=== PATIENT | male | born 1940 | race Caucasian/White ===

== ENCOUNTER 2016-08-24 18:08 | Emergency (ER) | payer MEDICARE, OTHER ==
[~2016-08-24] VITALS: Ht 180.3 cm; Wt 97.5 kg
[~2016-08-24 18:08] MED LIST: ALPR0.25 PO; DEPA250T2 PO; LORTA5 PO; MONT10 PO; OMEP20CA5 PO; TIZA2CAP PO
[2016-08-24 18:09] VITALS: BP 128/72; PULSE 82; RESP 24; TEMP 98.1; O2SAT 98
--- NOTE | 2016-08-24 18:29 | PD ---
Physical Exam Date Seen by Provider: Aug 24, 2016 Time Seen by Provider: 18:27 Narrative 76 YOWM HERE FOR RECURRENT SEIZURES X3 TODAY. NO RECENT CHANGE OF MEDS VSS. AWAITING BED PLACEMENT Data Data Last Documented VS Vital Signs Date Time Temp Pulse Resp B/P Pulse Ox O2 Delivery O2 Flow Rate FiO2 08/24/16 18:09 98.1 82 24 128/72 98 Room Air [facility] Medical Record Reviewed: Yes Supervised Visit with JERRI: Yes Jake Sandhu Aug 24, 2016 18:29
== END 2016-08-24 20:50 | disposition left against medical advice (07) ==
LOC: NED 18:08
DX: R56.9 Unspecified convulsions (principal); Z53.21 Procedure and treatment not carried out due to patient leaving prior to being seen by health care provider
CPT/HCPCS: 99283

== ENCOUNTER 2017-11-23 09:55 | Inpatient (IN) ==
[2017-11-23] MEDS ORDERED: ceFAZolin 2 GM Premix Inj 2 GM/50 ML PIGGYBACK IV.SIG PRN (10:39)
[2017-11-23 11:50] LABS: Baso % (Auto) 0.7 % (0.0-2.0); Eos % (Auto) 0.8 % (0.0-4.0); Hematocrit 46.1 % (39.0-51.0); Hemoglobin 15.4 gm/dL (13.0-17.0); Lymph # (Auto) 2.2 th/mm3 (1.0-4.8); Lymph % (Auto) 37.8 % (9.0-44.0); Mean Corpuscular HGB Conc 33.3 % (32.0-36.0); Mean Corpuscular Volume 87.1 fL (80.0-100.0); Mono # (Auto) 0.7 th/mm3 (0.0-0.9); Mono % (Auto) 11.5 % (0.0-8.0); Neut # (Auto) 2.9 th/mm3 (1.8-7.7); Neut % (Auto) 49.2 % (16.0-70.0); Platelet Count 168 th/mm3 (150-450); Red Cell Distribution Width 14.6 % (11.6-17.2); White Blood Count 5.8 th/mm3 (4.0-11.0)
[2017-11-23 11:57] LABS: Activated Partial Thrombo Time 23.9 sec (24.3-30.1); Prothrombin Time 10.3 sec (9.8-11.6)
[2017-11-23] MEDS ORDERED: Bisacodyl 10 MG Supp RECTAL PRN (11:57)
[2017-11-23] MEDS ORDERED: fentaNYL Citrate Inj 100 MCG/2 ML Ampul ONE (14:07)
--- NOTE | 2017-11-23 17:11 | IR ---
EXAM DATE: 11/23/2017 3:44 PM EDT AGE/SEX: 77 years / Male INDICATIONS: Patient presents with normal pressure hydrocephalus in need of lumbar drain for evaluat ion of possible PERFORMING ARTIST shunt placement. CLINICAL DATA: This is the patient's initial encounter. Patient reports that signs and symptoms have been present for > 1 year and indicates a pain score of 2/10. Location: , Laterality: MEDICAL/SURGICAL HISTORY: . Gallstones Anxiety Depression Arthritis Back pain BPH Seizures Slee p apnea GERD Gout Dawson Palsy Parkinson's . Linda Thoracotomy Eye surgery Colonoscopy Polyp removed COMPARISON: No prior exams available for comparison. FLUORO TIME (min): 4.07 IMAGE SERIES: 3 ACCESS SITE: L2-3 SEDATION TIME (min): 30 LUMBAR PUNCTURE TIME: 14:58 hours MEDICATION(S): 1.5 mg midazolam (Versed) IV 75 mcg fentanyl (Sublimaze) IV DEVICE(S): 5 Khmer lumbar drain catheter . . PROCEDURE: 1. Fluoroscopically guided lumbar drain placement. 2. Conscious sedation with continuous EKG and oximetry monitoring. The risks, benefits and alternatives to the procedure were explained and verbal and written consent w as obtained. The site was prepped in sterile fashion. Full sterile technique was used, including ca p, mask, sterile gloves and gown and a large sterile sheet. Hand hygiene and 2% chlorhexidine and/or betadine/alcohol prep was utilized per protocol for cutaneous antisepsis. The skin and subcutaneous tissues were infiltrated with local anesthetic solution. With fluoroscopic guidance the lumbar thecal sac was punctured with a 14 gauge Touhy needle and a lum bar drain was placed with its tip at the T7-T8 level and the catheter was sutured in place. CSF was i dentified returning from the catheter at the termination of the procedure. Conscious sedation was performed with the prescribed dosages and duration as above in the presence of an independent trained radiology nurse to assist in the monitoring of the patient. EKG and oximetry remained stable throughout the procedure. The patient tolerated the procedure well and there were n o complications. The patient was sent to post anesthesia recovery in stable condition. CONCLUSION: Uncomplicated fluoroscopic guided lumbar drain placement as above. Electronically signed by: Garry Pagan MD 11/23/2017 5:09 PM EDT
[2017-11-23] MEDS ORDERED: Zolpidem Tartrate 5 MG Tablet PO PRN (18:18)
[2017-11-23] MEDS ORDERED: Menthol 5.8 MG Lozenge BUCCAL PRN (18:18)
[2017-11-23] MEDS ORDERED: Acetaminophen 325 MG Tablet PO PRN (18:18)
[2017-11-23] MEDS: Sodium Chloride 0.45 % Inj 1,000 ML IV.CONT SCH (18:50)
[2017-11-23] MEDS: Divalproex 250 MG DR Tablet PO SCH (18:52)
[2017-11-23] MEDS: Montelukast 10 MG Tablet PO SCH (20:46)
[2017-11-23] MEDS: Senna/Docusate Sodium 8.6/50 MG Tablet PO SCH (20:50)
[2017-11-23] MEDS: ALPRAZolam 0.25 MG Tablet PO SCH (20:51)
[2017-11-24] MEDS: Divalproex 250 MG DR Tablet PO SCH ×3 (09:36→17:34)
[2017-11-24] MEDS: Senna/Docusate Sodium 8.6/50 MG Tablet PO SCH ×2 (09:36→20:50)
[2017-11-24] MEDS: Pantoprazole Sodium 20 MG DR Tablet PO SCH (09:36)
--- NOTE | 2017-11-24 14:29 | P.PNNS ---
Subjective Interval history: Patient underwent a temporary lumbar spinal drain by radiology he complains of a headache that improves with laying down. He otherwise states he is doing very well. He is going to get out of bed with physical therapy who is at the bedside. <Umberto Horn - Last Filed: 11/24/17 14:23> Physical Exam Vital signs: Vital Signs 11/23/17 15:25 11/23/17 15:40 11/23/17 16:40 Temperature Pulse Rate 66 76 74 Respiratory Rate 18 18 18 Blood Pressure 160/93 H 148/99 H 157/93 H Pulse Oximetry 11/23/17 17:08 11/23/17 20:47 11/24/17 00:00 Temperature 98.0 F 97.5 F L Pulse Rate 66 61 67 Respiratory Rate 20 20 18 Blood Pressure 160/87 H 141/70 H 115/69 Pulse Oximetry 97 95 11/24/17 04:00 11/24/17 08:00 11/24/17 12:00 Temperature 98.1 F 97.2 F L 98.1 F Pulse Rate 64 64 86 Respiratory Rate 18 18 17 Blood Pressure 113/66 122/61 118/62 Pulse Oximetry 96 96 96 Intake & Output 11/23/17 11/24/17 11/24/17 18:59 06:59 18:59 Output Total 835 / 835 Balance -835 / -835 Weight 99.79 kg Output: Urine Amount (Catheter) 675 / 675 Straight 675 / 675 Wound Drainage 160 / 160 Medial Back 160 / 160 Other: Weight On Admission 99.79 kg - Constitutional no acute distress - Routine HEENT Exam Head: Present: normocephalic Eye: Present: PERRL. Absent: conjunctival icterus - Routine Respiratory Exam Present: CTA bilaterally. Absent: respiratory distress, rhonchi, wheezes - Routine Cardiovascular Exam Present: RRR, S1, S2, murmur - Routine Abdominal Exam Present: soft, normoactive bowel sounds. Absent: distended - Routine Extremities Exam Absent: cyanosis, edema - Routine Skin Exam Present: intact, dry. Absent: cyanosis, erythema - Routine Neurological Exam Present: alert, oriented X3, moving all extremities, normal speech. Absent: sensory deficit, motor deficit, altered mental status - Routine Psychiatric Exam Present: normal affect - Urinary Catheter Management Straight Cath placed during this visit: no <Umberto Horn - Last Filed: 11/24/17 14:23> Vital signs: Vital Signs 11/23/17 15:25 11/23/17 15:40 11/23/17 16:40 Temperature Pulse Rate 66 76 74 Respiratory Rate 18 18 18 Blood Pressure 160/93 H 148/99 H 157/93 H Pulse Oximetry 11/23/17 17:08 11/23/17 20:47 11/24/17 00:00 Temperature 98.0 F 97.5 F L Pulse Rate 66 61 67 Respiratory Rate 20 20 18 Blood Pressure 160/87 H 141/70 H 115/69 Pulse Oximetry 97 95 11/24/17 04:00 11/24/17 08:00 11/24/17 12:00 Temperature 98.1 F 97.2 F L 98.1 F Pulse Rate 64 64 86 Respiratory Rate 18 18 17 Blood Pressure 113/66 122/61 118/62 Pulse Oximetry 96 96 96 Intake & Output 11/23/17 11/24/17 11/24/17 18:59 06:59 18:59 Output Total 835 / 835 Balance -835 / -835 Weight 99.79 kg Output: Urine Amount (Catheter) 675 / 675 Straight 675 / 675 Wound Drainage 160 / 160 Medial Back 160 / 160 Other: Weight On Admission 99.79 kg - Urinary Catheter Management Straight Cath placed during this visit: no <Jesus Lopez - Last Filed: 11/24/17 14:42> Assessment and Plan - Assessment (1) Unsteady gait Code(s): R26.81 - Unsteadiness on feet Status: Acute (2) Memory difficulty Code(s): R41.3 - Other amnesia Status: Acute - Plan Patient underwent a temporary lumbar spinal drain by radiology special procedures on 11/23/17. He states he is overall doing well. He gets headaches that improved with laying down. Discussed with the patient and RN if he develops headaches we can clamp the drain for short period of time which should improve his headaches. He also states he has some irritation after he was catheterized and we will obtain a UA to ensure no infection. Continue with PT. <Umberto Horn - Last Filed: 11/24/17 14:23> - Attending Attestation The exam, history, and the medical decision-making described in the above note were completed with the assistance of the mid-level provider. I reviewed and agree with the findings presented. I attest that I had a [id number] encounter with the patient on the same day, and personally performed and documented my assessment and findings in the medical record. Tolerating lumbar drain well with stable examination. Awaiting physical therapy evaluation today. Plan on continuing lumbar spinal drainage until tomorrow morning with subsequent discharge home. Updated at bedside. <Jesus Lopez - Last Filed: 11/24/17 14:42>
[2017-11-24] MEDS: Sodium Chloride 0.45 % Inj 1,000 ML IV.CONT SCH ×2 (16:44→20:52)
[2017-11-24] MEDS: Montelukast 10 MG Tablet PO SCH (17:35)
[2017-11-24 20:12] LABS: Bilirubin,Urine Negative (Negative); Clarity,Urine Clear (Clear); Color,Urine Straw (Yellw/Straw); Glucose,Urine (UA) Negative (Negative); Leukocyte Esterase,Urine Trace (Negative); Mucus,Urine Few /lpf (Occasional); Nitrite,Urine Negative (Negative); Specific Gravity,Urine 1.008 (1.002-1.035)
[2017-11-24] MEDS: ALPRAZolam 0.25 MG Tablet PO SCH (20:50)
[2017-11-25] MEDS: Senna/Docusate Sodium 8.6/50 MG Tablet PO SCH ×2 (08:15→21:00)
[2017-11-25] MEDS: Divalproex 250 MG DR Tablet PO SCH ×3 (08:15→17:31)
[2017-11-25] MEDS: Pantoprazole Sodium 20 MG DR Tablet PO SCH (08:15)
--- NOTE | 2017-11-25 11:27 | P.PNNS ---
Subjective Interval history: 11/25/17: Was called secondary to pt having headaches with nausea and vomiting. Advised RN to clamp drain, place of bedrest with hob flat, and increase IVF to 100ml/hr. Checked on pt 10-15 minutes later and he was feeling much better. He was not able to get up with PT today but did yesterday and pt and his felt he ambulated with less magnetic gait. <Umberto Horn - Last Filed: 11/25/17 11:20> Physical Exam Vital signs: Vital Signs 11/24/17 12:00 11/24/17 16:00 11/24/17 20:40 Temperature 98.1 F 98.1 F 98.7 F Pulse Rate 86 82 74 Respiratory Rate 17 16 18 Blood Pressure 118/62 124/64 148/78 H Pulse Oximetry 96 95 96 11/24/17 21:30 11/25/17 00:15 11/25/17 03:45 Temperature 97.9 F 98 F Pulse Rate 68 64 Respiratory Rate 18 17 19 Blood Pressure 135/65 129/76 Pulse Oximetry 98 99 11/25/17 08:00 Temperature 97.5 F L Pulse Rate 67 Respiratory Rate 18 Blood Pressure 133/69 Pulse Oximetry 98 Intake & Output 11/24/17 11/25/17 11/25/17 18:59 06:59 18:59 Intake Total 1999 Output Total 815 / 815 Balance -815 / -815 1999 Intake: IV 1000 / 1000 1/2 Normal Saline Inj 1,000 ML 1000 / 1000 @ KVO 30 mls/hr IV.CONT .Q24H [facility] Rx#:[id number] Oral 1000 / 1000 Output: Urine 775 / 775 Wound Drainage 40 / 40 Medial Back 40 / 40 Other: # Voids 4 1 # Bowel Movements 0 - Constitutional moderate distress, thin - Routine HEENT Exam Head: Present: normocephalic, atraumatic Eye: Present: PERRL. Absent: conjunctival icterus - Routine Respiratory Exam Present: CTA bilaterally. Absent: respiratory distress, rhonchi, wheezes - Routine Cardiovascular Exam Present: RRR, S1, S2. Absent: murmur - Routine Abdominal Exam Present: soft, normoactive bowel sounds. Absent: tenderness, distended - Routine Extremities Exam Absent: cyanosis, edema - Routine Skin Exam Present: intact. Absent: cyanosis, erythema - Routine Neurological Exam Present: alert, oriented X3, CN II-XII intact, moving all extremities, normal speech. Absent: sensory deficit, motor deficit, altered mental status - Detailed Neurological Exam: Coma Scale Eye Opening: Spontaneous Verbal Response: Oriented Motor Response: Obey commands Bernarda Coma Scale Total: 15 - Routine Psychiatric Exam Present: normal affect. Absent: agitated - Urinary Catheter Management Straight Cath placed during this visit: no <Umberto Horn - Last Filed: 11/25/17 11:20> Vital signs: Vital Signs 11/24/17 16:00 11/24/17 20:40 11/24/17 21:30 Temperature 98.1 F 98.7 F Pulse Rate 82 74 Respiratory Rate 16 18 18 Blood Pressure 124/64 148/78 H Pulse Oximetry 95 96 11/25/17 00:15 11/25/17 03:45 11/25/17 08:00 Temperature 97.9 F 98 F 97.5 F L Pulse Rate 68 64 67 Respiratory Rate 17 19 18 Blood Pressure 135/65 129/76 133/69 Pulse Oximetry 98 99 98 Intake & Output 11/24/17 11/25/17 11/25/17 18:59 06:59 18:59 Intake Total 1999 Output Total 815 / 815 Balance -815 / -815 1999 Intake: IV 1000 / 1000 1/2 Normal Saline Inj 1,000 ML 1000 / 1000 @ KVO 30 mls/hr IV.CONT .Q24H [facility] Rx#:[id number] Oral 1000 / 1000 Output: Urine 775 / 775 Wound Drainage 40 / 40 Medial Back 40 / 40 Other: # Voids 4 1 # Bowel Movements 0 - Urinary Catheter Management Straight Cath placed during this visit: no <Jesus Lopez - Last Filed: 11/25/17 13:48> Assessment and Plan - Assessment (1) Unsteady gait Code(s): R26.81 - Unsteadiness on feet Status: Acute (2) Memory difficulty Code(s): R41.3 - Other amnesia Status: Acute - Plan Patient underwent a temporary lumbar spinal drain by radiology special procedures on 11/23/17. Today he had headache, nausea and vomiting. The lumbar spinal drain was clamped, He was placed on bedrest with hob flat and his IVF was increased to 100ml/hr. Pt is feeling better. He felt yesterday his gait had improved. He will continue with current treatment for his h/a with drain clamped, hob flat and IVF. Will reassess later today. Anticipate discharge tomorrow. Discussed Condition With: RN and at bedside. <Umberto Horn - Last Filed: 11/25/17 11:20> - Attending Attestation The exam, history, and the medical decision-making described in the above note were completed with the assistance of the mid-level provider. I reviewed and agree with the findings presented. I attest that I had a [id number] encounter with the patient on the same day, and personally performed and documented my assessment and findings in the medical record. <Jesus Lopez - Last Filed: 11/25/17 13:48>
[2017-11-25] MEDS: Sodium Chloride 0.45 % Inj 1,000 ML IV.CONT SCH (13:47)
[2017-11-25] MEDS: Montelukast 10 MG Tablet PO SCH (20:59)
[2017-11-25] MEDS: ALPRAZolam 0.25 MG Tablet PO SCH (21:00)
[2017-11-26] MEDS: Sodium Chloride 0.45 % Inj 1,000 ML IV.CONT SCH ×2 (06:29→12:46)
[2017-11-26] MEDS: Divalproex 250 MG DR Tablet PO SCH ×3 (08:05→18:04)
[2017-11-26] MEDS: Senna/Docusate Sodium 8.6/50 MG Tablet PO SCH ×2 (08:05→21:09)
[2017-11-26] MEDS: Pantoprazole Sodium 20 MG DR Tablet PO SCH (08:05)
--- NOTE | 2017-11-26 13:48 | P.PNNS ---
Subjective Interval history: Patient complained of increased headache after removal of spinal drain yesterday. Reports he has a very significant headache when he is up. No other problems noted Physical Exam Vital signs: Vital Signs 11/25/17 16:00 11/25/17 20:30 11/26/17 00:15 Temperature 97.9 F 97.6 F 98 F Pulse Rate 69 72 69 Respiratory Rate 18 17 18 Blood Pressure 135/80 135/69 127/67 Pulse Oximetry 95 95 96 11/26/17 03:15 11/26/17 08:00 11/26/17 11:24 Temperature 97.8 F 98 F 97.5 F L Pulse Rate 75 73 65 Respiratory Rate 19 18 17 Blood Pressure 120/66 141/70 H 142/78 H Pulse Oximetry 98 95 94 L Intake & Output 11/25/17 11/26/17 11/26/17 18:59 06:59 18:59 Intake Total 1814 / 1814 Output Total 850 / 850 Balance 964 / 964 Intake: IV 814 / 814 1/2 Normal Saline Inj 1,000 ML 814 / 814 @ KVO 30 mls/hr IV.CONT .Q24H [facility] Rx#:[id number] Oral 1000 / 1000 Output: Urine 850 / 850 Other: # Bowel Movements 0 Narrative: Alert and awake. Follows commands. Fluent speech. Moves all extremities well. Dressing is dry - Urinary Catheter Management Straight Cath placed during this visit: no Assessment and Plan - Assessment (1) Spinal headache Code(s): G97.1 - Other reaction to spinal and lumbar puncture Status: Acute - Plan Complaining of significant headache when up. Nurses report nausea and vomiting resolved We will restrict patient's activities and reduce his head of bed and then slowly start to get him up again We will change IV fluids to normal saline
[2017-11-26] MEDS: Sod Chloride 0.9% Inj 1,000 ML IV.CONT SCH (15:17)
[2017-11-26] MEDS: Montelukast 10 MG Tablet PO SCH (18:05)
[2017-11-26] MEDS: ALPRAZolam 0.25 MG Tablet PO SCH (21:09)
[2017-11-27] MEDS: Sod Chloride 0.9% Inj 1,000 ML IV.CONT SCH ×2 (04:59→16:31)
[2017-11-27] MEDS: Pantoprazole Sodium 20 MG DR Tablet PO SCH (09:12)
[2017-11-27] MEDS: Senna/Docusate Sodium 8.6/50 MG Tablet PO SCH ×2 (09:12→20:55)
[2017-11-27] MEDS: Divalproex 250 MG DR Tablet PO SCH ×3 (09:12→18:19)
[2017-11-27 11:57] LABS: Carbon Dioxide 29.2 meq/L (21.0-32.0); Potassium 3.7 meq/L (3.5-5.1)
--- NOTE | 2017-11-27 15:36 | P.PNNS ---
Subjective Interval history: Patient reports improvement in his headache Physical Exam Vital signs: Vital Signs 11/26/17 15:45 11/26/17 20:00 11/27/17 00:59 Temperature 98.2 F 97.5 F L 97.7 F Pulse Rate 70 69 67 Respiratory Rate 17 18 Blood Pressure 131/71 142/61 H 142/76 H Pulse Oximetry 94 L 96 96 11/27/17 04:00 11/27/17 08:00 11/27/17 11:39 Temperature 97.8 F 98.1 F 98.2 F Pulse Rate 64 65 68 Respiratory Rate 20 17 18 Blood Pressure 140/92 H 128/73 169/86 H Pulse Oximetry 95 95 92 L Intake & Output 11/26/17 11/27/17 11/27/17 18:59 06:59 18:59 Intake Total 2647 / 2647 Balance 2647 / 2647 Weight 103.4 kg Intake: IV 1000 / 1000 NS Inj 1,000 ML @ 80 mls/hr IV. 1000 / 1000 CONT .[id number] [facility] Rx#:[id number] Other 1647 / 1647 Other: Other Intake Source Saline Solution Narrative: Alert and awake follows commands well Moves all extremities well. Interacts appropriately Bed is about 60 with minimal headache at the present time - Urinary Catheter Management Straight Cath placed during this visit: no Assessment and Plan - Assessment (1) Spinal headache Code(s): G97.1 - Other reaction to spinal and lumbar puncture Status: Acute - Plan Patient improved. We will continue to increase head of bed will try to get out of bed this evening to determine if his headache remains controlled. This was discussed with the patient, his family and his nurse
[2017-11-27] MEDS: Montelukast 10 MG Tablet PO SCH (18:20)
[2017-11-27] MEDS: ALPRAZolam 0.25 MG Tablet PO SCH (20:56)
[2017-11-28] MEDS: Divalproex 250 MG DR Tablet PO SCH ×3 (09:28→18:07)
[2017-11-28] MEDS: Senna/Docusate Sodium 8.6/50 MG Tablet PO SCH (09:29)
[2017-11-28] MEDS: Pantoprazole Sodium 20 MG DR Tablet PO SCH (09:29)
--- NOTE | 2017-11-28 15:52 | P.DS ---
Date of admission: 11/23/17 18:26 Primary care physician: Loly Gregorio MD Brief History from admission: Patient undergoing evaluation for NPH. Will have lumbar drain placed DS: Diagnosis - Discharge Diagnosis (1) Spinal headache Status: Acute (2) Unsteady gait Status: Acute (3) Memory difficulty Status: Acute DS: Summary Hospital Course: Patient underwent lumbar drain on the 11/23. Drainage of cerebrospinal fluid improved his gait somewhat. After removal of the drain the patient had persistent headaches for several days which improved with restriction of activity. Presently the patient complains very mild headache while being up and is able to ambulate without any difficulties. In view of this he will be discharged home. He is to follow-up with Dr. Lopez for further evaluation - Time Spent with Patient Total time spent providing and/or coordinating discharge services: - Quality: VTE Deep Vein Thrombosis/Pulmonary Embolism Present on Admission: No Exam Vital signs: Vital Signs 11/27/17 16:00 11/27/17 20:00 11/27/17 20:50 Temperature 97.6 F 98.1 F Pulse Rate 74 71 Respiratory Rate 18 18 18 Blood Pressure 165/87 H 160/85 H Pulse Oximetry 93 L 95 11/28/17 00:00 11/28/17 04:00 11/28/17 08:00 Temperature 97.5 F L 98.0 F 97.7 F Pulse Rate 67 68 68 Respiratory Rate 18 18 18 Blood Pressure 133/79 154/70 H 150/93 H Pulse Oximetry 95 94 L 96 11/28/17 12:00 Temperature 98.3 F Pulse Rate 65 Respiratory Rate 18 Blood Pressure 160/84 H Pulse Oximetry 96 Intake & Output 11/27/17 11/28/17 11/28/17 18:59 06:59 18:59 Intake Total 1000 / 1000 636 / 636 Output Total 625 / 625 600 / 600 Balance 1000 / 1000 -600 / -600 Weight 104.5 kg Intake: IV 1000 / 1000 NS Inj 1,000 ML @ 80 mls/hr IV. 1000 / 1000 CONT .[id number] [facility] Rx#:[id number] Oral 240 / 240 Other 396 / 396 Output: Urine 625 / 625 600 / 600 Wound Drainage 0 / 0 Medial Back 0 / 0 Other: Other Intake Source Saline Solution # Voids 1 1 1 Date of Last Bowel Movement 11/27/17 # Bowel Movements 0 1 Narrative: Patient is alert and awake he follows commands well. Speech is fluent Moves all extremities well. Ambulates with a walker Results Procedures completed during hospitalization: Placement of lumbar drain - Impressions ITS Impressions Lumbar Puncture Fluoroscopy 11/23/17 00:00 CONCLUSION: Uncomplicated fluoroscopic guided lumbar drain placement as above. Discharge Plan - Discharge Disposition Patient Disposition: 01 Discharge Home - Discharge Condition Condition: Good - Discharge Order Discharge Orders: Discharge Order (Routine); Ordered 11/28/17 Ordered By: Paul Newman - Physicians Team Primary Care Provider: Loly Gregorio Attending Provider: Jesus Lopez - Rxs /Orders / Referrals /Forms Prescriptions: Continue alprazolam 0.25 mg Tablet 0.25 mg PO divalproex 250 mg Tablet,Delayed Release (Dr/Ec) 250 mg PO TID hydrocodone-acetaminophen 5-325 mg Tablet 1 tab PO Q4-6H PRN (Reason: Pain) montelukast 10 mg Tablet 10 mg PO QPM omeprazole 20 mg Capsule,Delayed Release(Dr/Ec) 20 mg PO DAILY ropinirole 0.25 mg Tablet 0.25 mg PO HS tizanidine 2 mg Tablet 2 mg PO TID PRN (Reason: Pain) Referrals: Loly Gregorio MD [Primary Care Provider] - See Instructions
== END 2017-11-28 18:19 | disposition home or self-care (01) ==
LOC: HROP 09:55 → HRIP 09:59 → N05 18:26
PROVIDERS: ADMIT Neurological Surgery; ATTEND Neurological Surgery

== ENCOUNTER 2017-12-28 14:30 | Inpatient (IN) ==
[2017-12-30] MEDS ORDERED: Chlorhexidine Gluconate 2% 1 Pack (2 Cloths) TOPICAL SCH (06:15)
[2017-12-30] MEDS ORDERED: Metoprolol Tartrate 25 MG Tablet PO SCH (06:15)
[2017-12-30] MEDS ORDERED: Sodium Chlor 0.9% Inj 500 ML IV.SIG SCH (07:00)
[2017-12-30] MEDS ORDERED: Vancomycin Inj 1 GM/200 ML PIGGYBACK IV.SIG SCH (07:00)
[2017-12-30] MEDS ORDERED: Thrombin Topical Soln 5,000 UNIT Vial TOPICAL ONE (08:05)
[2017-12-30] MEDS ORDERED: Gelatin Size 100 Topical Foam ONE (08:05)
--- NOTE | 2017-12-30 08:24 | MH ---
cc: Jesus Lopez MD DATE OF ADMISSION: 12/30/2017 ADMITTING DIAGNOSIS: Normal pressure hydrocephalus. HISTORY OF PRESENT ILLNESS: This is a 77-year-old male who presented to our office for an evaluation of chronic unsteadiness in his gait, as well as progressively worsening short-term memory loss, with some urinary issues, although denies fransisco incontinence. His symptoms have been ongoing for several years, although more prominent in the past year or so. He also has a chronic history of seizures and his last seizure was about 4 months ago, and he is followed by Dr. Girard from neurology. MRI of the brain obtained revealed moderate ventriculomegaly with slight periventricular fluid migration and given his symptoms, neurosurgical evaluation for normal pressure hydrocephalus was requested. He also complained of chronic low back pain with radiation into the right lower extremity, with intermittent numbness, although states that with pain medications, he can live with his back pain. Further workup for normal pressure hydrocephalus involved a temporary lumbar spinal drain. He underwent a temporary lumbar spinal drain placement for possible normal pressure hydrocephalus and states that his walking definitely improved and he had better balance. He also had better control of his bladder. The patient is requesting that we proceed with surgical intervention. PAST MEDICAL HISTORY: 1. Significant for anxiety. 2. Gastroesophageal reflux disease. 3. Epilepsy. 4. Restless legs syndrome. MEDICATIONS: He takes Alprazolam 0.25 mg 3 times a day, divalproex 250 mg b.i.d., omeprazole 20 mg daily, ropinirole 0.5 mg 3 times a day. DRUG ALLERGIES: HE IS ALLERGIC TO ASPIRIN, IODINE AND CONTRAST MEDIA. FAMILY HISTORY: Father is at 85, had a history of cancer of the lung. Mother is at age 52, had history of colon cancer. Sister has a history of breast cancer. SOCIAL HISTORY: He does not drink alcohol and he is a former smoker, quitting in 1969. PAST SURGICAL HISTORY: Significant for lung surgery in 1999, cholecystectomy in 2011, eye surgery in 2007 and 2008. REVIEW OF SYSTEMS: CONSTITUTIONAL: He denies any fever or chills. Positive for weight gain. EARS, NOSE AND THROAT: No pharyngitis. Positive for some difficulty with swallowing. RESPIRATORY: Positive for chronic cough. No shortness of breath. HEART: Denies any chest pain or palpitations. GENITOURINARY: Positive for urinary frequency, improvement in his urinary incontinence. GASTROINTESTINAL: No nausea, vomiting, abdominal pain. MUSCULOSKELETAL: Positive for difficulty with gait, improved after he had lumbar spinal drain. NEUROLOGIC: Denies any significant difficulty with memory. Positive for history of seizures. Positive for difficulty with balance. ENDOCRINE: Significant for polyuria, no polydipsia. HEMATOLOGIC: No bruising or bleeding tendencies. PHYSICAL EXAMINATION: HEAD: Normocephalic, atraumatic. NECK: Supple. No carotid bruits heard on auscultation. PULMONARY: Clear to auscultation bilaterally. HEART: Regular rate and rhythm. Normal S1, S2. ABDOMEN: Soft, nontender, positive bowel sounds. SKIN: Reveals no cyanosis or erythema. MUSCULOSKELETAL: He has 5/5 strength in the upper and lower extremities. He presented to the office in a wheelchair, but has a magnetic gait. NEUROLOGIC: He is awake, alert and oriented. Cranial nerves 2-12 are grossly intact. His speech is fluent. Comprehension is good. Sensation is intact in the upper and lower extremities. IMPRESSION: This is a 77-year-old male who underwent a temporary lumbar spinal drain for evaluation of normal pressure hydrocephalus and had significant improvement in his gait imbalance along with urinary control issues, which lasted for a few days and subsequently his symptoms recurred. PLAN: Given that the patient responded well to temporary lumbar spinal drain, he would be a good candidate for ventriculoperitoneal shunt placement. We have discussed the procedure, as well as the risks, benefits, alternatives, and recovery time in great detail with the patient and his family. We have discussed the risks involved with surgery include, but are not limited to, bleeding, infection, muscle weakness, voice hoarseness, difficulty swallowing, heart attack, stroke, blood clots, seizures, brain edema, shunt obstruction, among others. The patient and his family state that they understand the procedure as well as the risks involved. In the ER, we requested that we proceed with surgery and he was, therefore, scheduled accordingly. Dictated by Umberto Horn PA-C MD LOUISE Michael/LEXA , 07:14 PM , 07:23 PM
[2017-12-30] MEDS ORDERED: Bupivacaine/Epinephrine 0.5% Inj 50 ML Vial ONE (09:06)
[2017-12-30] MEDS ORDERED: Dexmedetomidine Inj 200 MCG/2 ML Vial ONE (09:31)
[2017-12-30] MEDS ORDERED: fentaNYL Citrate Inj 100 MCG/2 ML Ampul ONE (11:13)
[2017-12-30] MEDS ORDERED: ALPRAZolam 0.25 MG Tablet PO PRN (11:15)
[2017-12-30] MEDS ORDERED: Montelukast 10 MG Tablet PO PRN (11:15)
[2017-12-30] MEDS ORDERED: Menthol 5.8 MG Lozenge BUCCAL PRN (11:16)
[2017-12-30] MEDS ORDERED: Bisacodyl 10 MG Supp RECTAL PRN (11:16)
--- NOTE | 2017-12-30 11:25 | P.OP ---
- Preoperative Diagnosis (1) NPH (normal pressure hydrocephalus) - Postoperative Diagnosis (1) NPH (normal pressure hydrocephalus) Date of procedure: 12/30/17 Procedure: Right frontal odette hole ventriculoperitoneal shunt placement with Codman programmable valve Surgeon: Jesus Lopez MD Engineering Consultant: Madalyn Hanks Estimated blood loss (mL): 25 Operation and Findings: Following administration of general endotracheal anesthesia, patient was placed in a supine position and a Gusman catheter placed along with sequential compression devices. Vancomycin 1 g was and administered intravenously. The head secured in donut and turned 30 to the left side and a shoulder roll placed in the right side and all pressure points adequately padded. The right frontal parietal occipital anterior neck and chest and abdomen area was shaved and prepped with a Betadine solution and Chloraprep. Draping with Ioban also undertaken along with the usual sterile draping. Using landmarks of 11 cm behind the nasion and 3 cm right of the midline a curvilinear right frontal incision was made after infiltrating the skin was 0.5% Marcaine with epinephrine solution. A odette hole was made with an automatic manager truck and the underlying dura cauterized with bipolar cautery and opened in a cruciate format. Right subcostal abdominal incision site was then infiltrated with 0.5% Marcaine with epinephrine solution and incision made extending down through the anterior fascia of the rectus sheath and then the posterior fascia also incised and the peritoneal wall identified and also incised in a 3-0 silk pursestring suture was been placed around the opening. There was significant peritoneal adhesions noted from his previous abdominal surgeries but was able to access to the intraperitoneal space. A subcutaneous tunnel was then created between the frontal and the abdominal incision site with a small interim incision in the neck and the bactiseal Codman peritoneal catheter was then tunneled through. The catheter was connected to a [employer] Codman programmable valve set at 100 mm a water setting with the anti-siphon device. The ventricular catheter was then passed the 6 cm in depth and clear CSF encountered and this was then connected to the proximal reservoir valve with a 2-0 silk tie. Good distal CSF flow run off was noted from the peritoneal catheter which was then dropped into the peritoneum and the pursestring suture was tied along with the approximation of the anterior rectus sheath with 3-0 Vicryl interposition and 3-0 Vic[address] subcut[address] cyst also place an interrupted fashion and final skin closure with jeanne. Incision sites were irrigated with the saline solution prior to closure. The right frontal and small neck incision areas were then also approximated with 3-0 Vicryl galeal stitches and jeanne. Sterile dressings then applied and the patient extubated and taken recovery room. There were no intraoperative complications and all sponge and needle, was correct at the end of the procedure. Estimated blood loss less than 25cc.
[2017-12-30] MEDS ORDERED: Neostigmine Inj 5 MG/5 ML Syringe IV.PUSH ONE (12:00)
[2017-12-30] MEDS ORDERED: Lidocaine PF 1% Inj 5 ML Syringe INFILTRATN ONE (12:00)
[2017-12-30] MEDS ORDERED: Glycopyrrolate Inj 1 MG/5 ML Syringe IV.PUSH ONE (12:00)
[2017-12-30] MEDS ORDERED: Phenylephrine/NS 1000 MCG/10ML Syringe IV.PUSH ONE (12:00)
[2017-12-30] MEDS ORDERED: Morphine Inj 4 MG/ML Vial IV.PUSH PRN (12:45)
[2017-12-30] MEDS: Sod Chloride 0.9% Inj 1,000 ML IV.SIG SCH (17:05)
[2017-12-30] MEDS: Docusate Sodium 100 MG Capsule PO SCH ×2 (17:06→18:00)
[2017-12-30] MEDS: Divalproex 250 MG DR Tablet PO SCH ×2 (17:06→18:00)
--- NOTE | 2017-12-30 18:33 | CT ---
EXAM DATE: 12/30/2017 6:29 PM EDT AGE/SEX: 77 years / Male INDICATIONS: Post op shunt placement. CLINICAL DATA: This is the patient's initial encounter. Patient reports that signs and symptoms have been present for 1 day and indicates a pain score of 4/10. MEDICAL/SURGICAL HISTORY: Gastroesophageal reflux disease. Seizures. Arthritis. Cholecystectomy. Shunt placement. RADIATION DOSE: 42.57 CTDI (mGy) COMPARISON: No prior exams available for comparison. TECHNIQUE: CT of the head without contrast. Using automated exposure control and adjustment of the mA and/or kV according to patient size, radiation dose was kept as low as reasonably achievable to ob tain optimal diagnostic quality images. DICOM format image data is available electronically for revi ew and comparison. FINDINGS: Cerebrum: A right frontal ventriculostomy tube has been placed. The tip of the tube remains in the r ight frontal horn. Small amount of air is identified in the subarachnoid space along the right fronta l lobe. There is no evidence of acute hemorrhage. Cerebral hemispheres are stable without evidence of focal hemorrhage or edema. Posterior Fossa: The cerebellum and brainstem are intact. The 4th ventricle is midline. The cerebe llopontine angle is unremarkable. Extracranial: The visualized portion of the orbits is intact. Skull: The calvaria is intact. No evidence of skull fracture. CONCLUSION: 1. Satisfactory postoperative appearance of the brain status post right ventriculostomy tube placeme nt. 2. No evidence of hemorrhage or edema. . Electronically signed by: Emmanuel Cao MD 12/30/2017 6:32 PM EDT
[2017-12-31] MEDS ORDERED: Pantoprazole Sodium 20 MG DR Tablet PO SCH (09:00)
[2017-12-31] MEDS: Divalproex 250 MG DR Tablet PO SCH ×2 (09:23→13:25)
[2017-12-31] MEDS: Docusate Sodium 100 MG Capsule PO SCH ×2 (09:23→13:25)
[2017-12-31] MEDS: Sod Chloride 0.9% Inj 1,000 ML IV.SIG SCH (09:24)
[2017-12-31] MEDS: Aluminum/Magnesium/Simethacone Susp 30 ML UDC PO PRN ×2 (09:26→16:24)
--- NOTE | 2017-12-31 12:02 | P.DCO ---
- Physical Therapy Order: Evaluate and treat, Improve ambulation, Strength and gait training - Home Health Nursing Order: Wound care and dressing changes, Nursing assessment with vital signs Instructions: Remove scalp jeanne and abdominal jeanne on 01/06/18. - Certification I have seen patient Yann Martinez on 12/31/17. My clinical findings support the need for the requested home health care services because: Deconditioned with increased weakness, High risk of falls I certify that my clinical findings support that this patient is homebound because: Unsteady gait/balance, Unable to use public transportation
--- NOTE | 2017-12-31 12:07 | P.PNNS ---
Subjective Interval history: Pt awake and alert. Mild headache top of the head. Had one episode of emesis but felt that he got up too quickly. He is very pleased with improvement in his gait. <Umberto Horn - Last Filed: 12/31/17 12:02> Physical Exam Vital signs: Vital Signs 12/30/17 12:30 12/30/17 20:00 12/31/17 00:00 Temperature 98 F Pulse Rate 70 96 H 94 H Respiratory Rate 12 18 18 Blood Pressure 131/61 166/86 H 177/94 H Pulse Oximetry 100 96 97 12/31/17 01:10 12/31/17 03:47 12/31/17 03:57 Temperature Pulse Rate Respiratory Rate 18 18 Blood Pressure Pulse Oximetry 98 12/31/17 04:00 12/31/17 06:06 12/31/17 09:12 Temperature 98.4 F 98.9 F Pulse Rate 97 H 89 Respiratory Rate 18 20 16 Blood Pressure 158/78 H 156/79 H Pulse Oximetry 97 97 Intake & Output 12/30/17 12/31/17 12/31/17 18:59 06:59 18:59 Intake Total 1300 / 1300 1842 / 1842 Output Total 230 / 230 1600 / 1600 Balance 1070 / 1070 242 / 242 Weight 107.8 kg Intake: IV 100 / 100 Ancef Inj 1,000 MG In NS Inj 100 / 100 100 ML @ 200 mls/hr IV.SIG Q8H [facility] Rx#:[id number] Oral 442 / 442 Anesthesia Amount 1300 / 1300 1300 / 1300 Output: Urine 1600 / 1600 Estimated Blood Loss 30 / 30 Urine Amount (Catheter) 200 / 200 Indwelling Urethral Catheter 200 / 200 Other: Date of Last Bowel Movement 12/28/17 - Constitutional no acute distress, average body habitus - Routine HEENT Exam Head: Absent: normocephalic (Right scalp incisions with jeanne in place, clean and dry.), atraumatic Eye: Present: PERRL. Absent: conjunctival icterus ENT: Present: oropharynx clear - Routine Neck Exam Present: trachea midline - Routine Respiratory Exam Present: CTA bilaterally. Absent: decreased breath sounds, respiratory distress , rhonchi, wheezes - Routine Cardiovascular Exam Present: RRR, S1, S2. Absent: murmur - Routine Abdominal Exam Present: soft, normoactive bowel sounds. Absent: distended, firm - Routine Skin Exam Present: cyanosis, erythema - Routine Neurological Exam Present: alert, oriented X3, CN II-XII intact, moving all extremities, normal speech. Absent: sensory deficit, motor deficit, altered mental status - Routine Psychiatric Exam Present: normal affect, cooperative, good judgment. Absent: anxious, agitated - Urinary Catheter Management Indwelling Urethral Catheter Cath placed during this visit: no <Umberto Horn - Last Filed: 12/31/17 12:02> Vital signs: Vital Signs 12/30/17 20:00 12/31/17 00:00 12/31/17 01:10 Temperature 98 F Pulse Rate 96 H 94 H Respiratory Rate 18 18 18 Blood Pressure 166/86 H 177/94 H Pulse Oximetry 96 97 12/31/17 03:47 12/31/17 03:57 12/31/17 04:00 Temperature 98.4 F Pulse Rate 97 H Respiratory Rate 18 18 Blood Pressure 158/78 H Pulse Oximetry 98 97 12/31/17 06:06 12/31/17 09:12 Temperature 98.9 F Pulse Rate 89 Respiratory Rate 20 16 Blood Pressure 156/79 H Pulse Oximetry 97 Intake & Output 12/30/17 12/31/17 12/31/17 18:59 06:59 18:59 Intake Total 1300 / 1300 1842 / 1842 Output Total 230 / 230 1600 / 1600 Balance 1070 / 1070 242 / 242 Weight 107.8 kg Intake: IV 100 / 100 Ancef Inj 1,000 MG In NS Inj 100 / 100 100 ML @ 200 mls/hr IV.SIG Q8H [facility] Rx#:[id number] Oral 442 / 442 Anesthesia Amount 1300 / 1300 1300 / 1300 Output: Urine 1600 / 1600 Estimated Blood Loss 30 / 30 Urine Amount (Catheter) 200 / 200 Indwelling Urethral Catheter 200 / 200 Other: Date of Last Bowel Movement 12/28/17 - Urinary Catheter Management Indwelling Urethral Catheter Cath placed during this visit: no <Jesus Lopez - Last Filed: 12/31/17 12:52> Assessment and Plan - Assessment (1) Unsteady gait Code(s): R26.81 - Unsteadiness on feet Status: Acute (2) Memory difficulty Code(s): R41.3 - Other amnesia Status: Acute (3) NPH (normal pressure hydrocephalus) Code(s): G91.2 - (Idiopathic) normal pressure hydrocephalus Status: Acute - Plan 77 y/o M s/p [employer] shunt for NPH. Doing well with improvement in gait. postop CT head no intracranial hemorrhage. P: Discharge pt home. Discussed restrictions. Home health to remove jeanne in 1 week order given. <Umberto Horn - Last Filed: 12/31/17 12:02> - Attending Attestation The exam, history, and the medical decision-making described in the above note were completed with the assistance of the mid-level provider. I reviewed and agree with the findings presented. I attest that I had a [id number] encounter with the patient on the same day, and personally performed and documented my assessment and findings in the medical record. <Jesus Lopez - Last Filed: 12/31/17 12:52>
== END 2017-12-31 16:59 | disposition home health service (06) ==
LOC: HSDI 12-30 05:52 → N05 12-30 13:19
PROVIDERS: ADMIT Neurological Surgery; ATTEND Neurological Surgery

== ENCOUNTER 2018-02-01 11:41 | Inpatient (IN) ==
--- NOTE | 2018-02-01 12:32 | ED ---
HPI General Chief complaint: Recheck/Abnormal Lab/Rx Stated complaint: Poss Bleeding in the brain Time Seen by Provider: 02/01/18 12:14 Source: patient, RN notes reviewed and old records reviewed Mode of arrival: wheelchair Limitations: no limitations History of Present Illness HPI narrative: 77-year-old male presents to the emergency department sent from [facility] for right-sided subdural hematoma. Patient states that he sees Dr. Lopez, neurosurgeon. He had a shunt placed approximately [address] Lopez for NPH. He states this was a routine CT scan. However, he did call his neurosurgeon to tell him that they was worried because he felt increasing prominence of his shunt. He reports a generalized headache, 06/02. He denies any other symptoms. He does say he has been having some right lower quadrant abdominal pain intermittent over the past week. He has no pain at this time. He does have history of seizures and is on Depakote. He is not on anticoagulants. Moderate- severe severity. Location: head Radiation: non-radiation Severity scale (1-10): 1 Quality: aching Pain Consistency: constant Relieving factors: none Exacerbating factors: none Associated symptoms: denies other symptoms Treatments prior to arrival: other (CT scan) Related Data Home Medications Medication Instructions Recorded Confirmed alprazolam 0.25 mg PO DAILY PRN 11/23/17 02/01/18 divalproex 250 mg PO TID 11/23/17 02/01/18 omeprazole 20 mg PO DAILY 11/23/17 02/01/18 ropinirole 0.25 mg PO HS 11/23/17 02/01/18 docusate sodium [Colace] 100 mg PO TID 12/23/17 02/01/18 Previous Rx's Medication Instructions Recorded hydrocodone-acetaminophen 1 tab PO Q4-6H PRN #60 tab-cap 12/31/17 Allergies Allergy/AdvReac Type Severity Reaction Status Date / Time aspirin Allergy Intermediate Burning Verified 12/30/17 06:28 diatrizoate meglumine Allergy Intermediate HIVES Verified 12/30/17 06:28 gadobenic acid Allergy Intermediate HIVES Verified 12/30/17 06:28 gadodiamide Allergy Intermediate HIVES Verified 12/30/17 06:28 gadoteridol Allergy Intermediate HIVES Verified 12/30/17 06:28 iodixanol Allergy Intermediate HIVES Verified 12/30/17 06:28 iohexol Allergy Intermediate HIVES Verified 12/30/17 06:28 Review of Systems ROS: all other systems reviewed are negative [facility] Medical History Medical History Anxiety (Acute) Arthritis (Acute) Cataract (Acute) Chronic back pain (Acute) Dental root implant present (Acute) Depression (Acute) Deterioration of spinal disc of lower back (Acute) Diminished hearing (Acute) Eczema (Acute) GERD (gastroesophageal reflux disease) (Acute) Gastric ulcer (Acute) Gout (Acute) Lazy eye of left side (Acute) Macular pucker, right eye (Acute) Prostate disorder (Acute) RLS (restless legs syndrome) (Acute) Seizure (Acute) Wears glasses (Acute) Wears hearing aid in both ears (Acute) Diverticulitis (Resolved) Surgical History Surgical History History of bowel resection (Resolved) H/O transurethral resection of prostate (Acute) History of partial colectomy (Acute) History of thoracotomy (Acute) Hx of cataract surgery (Acute) Hx of cholecystectomy (Acute) Social History Social History Substance History: No History of Abuse Second Hand Smoke Exposure: No Smoking Status: Former smoker How Often Do You Have a Drink Containing Alcohol: Never Recent Travel in [facility] within the Last 8 Weeks: No Recent Out of Country Travel within the Last 8 Weeks: No Exam Narrative Exam Narrative: GENERAL: Well-nourished, well-developed elderly male patient, afebrile. SKIN: Focused skin assessment warm/dry. HEAD: Normocephalic. Atraumatic. EYES: No scleral icterus. No injection or drainage. PERRLA. EOM intact. NECK: Supple, trachea midline. No JVD or lymphadenopathy. CARDIOVASCULAR: Regular rate and rhythm without murmurs, gallops, or rubs. RESPIRATORY: Breath sounds equal bilaterally. No accessory muscle use. Lung sounds are clear to auscultation. GASTROINTESTINAL: Abdomen soft, non-tender, nondistended. MUSCULOSKELETAL: No cyanosis, or edema. Bilateral upper and lower extremity strength 5/5. All extremities are neurovascularly intact. BACK: Nontender without obvious deformity. No CVA tenderness. Course Initial Documented Vital Signs Temperature 97.8 F 02/01/18 12:00 Pulse Rate 78 02/01/18 12:00 Respiratory Rate 16 02/01/18 12:00 Blood Pressure 134/74 02/01/18 12:00 Pulse Oximetry 97 02/01/18 12:00 Last Documented Vital Signs Temperature 97.7 F 02/01/18 20:00 Pulse Rate 72 02/01/18 20:00 Respiratory Rate 18 02/01/18 20:00 Blood Pressure 156/86 H 02/01/18 20:00 Pulse Oximetry 97 02/01/18 20:00 Medical Decision Making MDM Narrative Medical decision making narrative: 77-year-old male presents to the emergency department at [facility] which shows a moderate sized right-sided subdural hematoma with evidence of interval active bleeding with acute blood products identified within the subdural hematoma, there is moderate mass-effect upon the right frontal and parietal lobes similar to seen on prior exam, no evidence of midline shift at this time. IV access obtained. CBC, CMP, PTT, PT/ INR are ordered and pending. Dr. Lopez, neurosurgeon, is paged. I spoke with RITA Shipman for Dr. Lopez. He spoke to Dr. Lopez who states he would like the patient to be admitted. He can be admitted to Dr. Lopez and needs to go to the neuro floor. I updated the patient as well. Medical Screen Exam Complete: Yes Emergency Medical Condition: Yes Lab Data Result diagrams: 02/01/18 12:35 02/01/18 12:35 Lab Results 02/01/18 02/01/18 02/01/18 Range/Units 12:35 12:35 12:35 WBC 5.1 (4.0-11.0) th/mm3 RBC 4.95 (4.50-5.90) mil/mm3 Hgb 14.8 (13.0-17.0) gm/dL Hct 44.3 (39.0-51.0) % MCV 89.6 (80.0-100.0) fL MCH 29.8 (27.0-34.0) pg MCHC 33.3 (32.0-36.0) % RDW 14.5 (11.6-17.2) % Plt Count 125 L (150-450) th/mm3 MPV 10.1 (7.0-11.0) fL Neut % (Auto) 45.7 (16.0-70.0) % Lymph % (Auto) 39.5 (9.0-44.0) % [place] % (Auto) 12.3 H (0.0-8.0) % Eos % (Auto) 2.0 (0.0-4.0) % Baso % (Auto) 0.5 (0.0-2.0) % Neut # (Auto) 2.3 (1.8-7.7) th/mm3 Lymph # (Auto) 2.0 (1.0-4.8) th/mm3 [place] # (Auto) 0.6 (0.0-0.9) th/mm3 Eos # (Auto) 0.1 (0.0-0.4) th/mm3 Baso # (Auto) 0.0 (0.0-0.2) th/mm3 WBC Differential . Differential Comment Auto diff final PT 10.1 (9.8-11.6) sec INR 1.0 Ratio APTT 24.5 (24.3-30.1) sec Sodium 140 (136-145) meq/L Potassium 4.4 (3.5-5.1) meq/L Chloride 104 (98-107) meq/L Carbon Dioxide 27.7 (21.0-32.0) meq/L Anion Gap 8 (5-15) meq/L BUN 17 (7-18) mg/dL Creatinine 1.18 (0.60-1.30) mg/dL Estimated GFR 60 L (>89) mL/min Random Glucose 107 H (74-106) mg/dL Calcium 8.8 (8.5-10.1) mg/dL Total Bilirubin 0.3 (0.2-1.0) mg/dL AST 17 (15-37) U/L ALT 29 (12-78) U/L Alkaline Phosphatase 59 (45-117) U/L Total Protein 7.5 (6.4-8.2) g/dL Albumin 3.4 (3.4-5.0) g/dL Urine Color (Yellw/Straw) Urine Clarity (Clear) Urine pH (5.0-8.5) Ur Specific [place] (1.002-1.035) Urine Protein (Neg-Trace) mg/dL Urine Glucose (UA) (Negative) mg/dL Urine Ketones (Negative) mg/dL Urine Occult Blood (Negative) Urine Nitrate (Negative) Urine Bilirubin (Negative) Urine Urobilinogen (Less than 2) mg/dL Ur Leukocyte Esterase (Negative) Urine RBC (0-3) /hpf Urine WBC (0-5) /hpf Urine Mucus (Occasional) /lpf Micro UA Comment Ur Microscopic Review Urine Culture Comments Valproic Acid (50-100) mcg/mL 02/01/18 02/01/18 Range/Units 12:35 15:57 WBC (4.0-11.0) th/mm3 RBC (4.50-5.90) mil/mm3 Hgb (13.0-17.0) gm/dL Hct (39.0-51.0) % MCV (80.0-100.0) fL MCH (27.0-34.0) pg MCHC (32.0-36.0) % RDW (11.6-17.2) % Plt Count (150-450) th/mm3 MPV (7.0-11.0) fL Neut % (Auto) (16.0-70.0) % Lymph % (Auto) (9.0-44.0) % [place] % (Auto) (0.0-8.0) % Eos % (Auto) (0.0-4.0) % Baso % (Auto) (0.0-2.0) % Neut # (Auto) (1.8-7.7) th/mm3 Lymph # (Auto) (1.0-4.8) th/mm3 [place] # (Auto) (0.0-0.9) th/mm3 Eos # (Auto) (0.0-0.4) th/mm3 Baso # (Auto) (0.0-0.2) th/mm3 WBC Differential Differential Comment PT (9.8-11.6) sec INR Ratio APTT (24.3-30.1) sec Sodium (136-145) meq/L Potassium (3.5-5.1) meq/L Chloride (98-107) meq/L Carbon Dioxide (21.0-32.0) meq/L Anion Gap (5-15) meq/L BUN (7-18) mg/dL Creatinine (0.60-1.30) mg/dL Estimated GFR (>89) mL/min Random Glucose (74-106) mg/dL Calcium (8.5-10.1) mg/dL Total Bilirubin (0.2-1.0) mg/dL AST (15-37) U/L ALT (12-78) U/L Alkaline Phosphatase (45-117) U/L Total Protein (6.4-8.2) g/dL Albumin (3.4-5.0) g/dL Urine Color Yellow (Yellw/Straw) Urine Clarity Clear (Clear) Urine pH 7.0 (5.0-8.5) Ur Specific [place] 1.017 (1.002-1.035) Urine Protein Negative (Neg-Trace) mg/dL Urine Glucose (UA) Negative (Negative) mg/dL Urine Ketones Negative (Negative) mg/dL Urine Occult Blood Negative (Negative) Urine Nitrate Negative (Negative) Urine Bilirubin Negative (Negative) Urine Urobilinogen Less than 2 (Less than 2) mg/dL Ur Leukocyte Esterase Negative (Negative) Urine RBC Less than 1 (0-3) /hpf Urine WBC Less than 1 (0-5) /hpf Urine Mucus Few H (Occasional) /lpf Micro UA Comment Culture not ind Ur Microscopic Review Not Reportable Urine Culture Comments Culture not ind Valproic Acid 48 L (50-100) mcg/mL Discharge Plan Discharge Disposition Patient Disposition: 30 Still Patient Discharge Details Diagnosis: Intracranial subdural hematoma Physicians Team ED Provider: Harjinder Oquendo ED Midlevel Provider: Mary Mckay Primary Care Provider: Loly Gregorio Attending Provider: Jesus Lopez Status ED Status: Left Department Discharge Information Discharge Date/Time: 02/01/18 16:51
[2018-02-01 12:59] LABS: Baso % (Auto) 0.5 % (0.0-2.0); Eos # (Auto) 0.1 th/mm3 (0.0-0.4); Hematocrit 44.3 % (39.0-51.0); Hemoglobin 14.8 gm/dL (13.0-17.0); Lymph % (Auto) 39.5 % (9.0-44.0); Mean Corpuscular HGB Conc 33.3 % (32.0-36.0); Mean Corpuscular Hemoglobin 29.8 pg (27.0-34.0); Mean Corpuscular Volume 89.6 fL (80.0-100.0); Mean Platelet Volume 10.1 fL (7.0-11.0); Mono # (Auto) 0.6 th/mm3 (0.0-0.9); Mono % (Auto) 12.3 % (0.0-8.0); Neut # (Auto) 2.3 th/mm3 (1.8-7.7); Neut % (Auto) 45.7 % (16.0-70.0); Platelet Count 125 th/mm3 (150-450); Red Blood Count 4.95 mil/mm3 (4.50-5.90); Red Cell Distribution Width 14.5 % (11.6-17.2); White Blood Count 5.1 th/mm3 (4.0-11.0)
[2018-02-01 13:17] LABS: Activated Partial Thrombo Time 24.5 sec (24.3-30.1); Prothrombin Time 10.1 sec (9.8-11.6)
[2018-02-01 13:19] LABS: Alkaline Phosphatase 59 U/L (45-117); Blood Urea Nitrogen 17 mg/dL (7-18); Total Protein 7.5 g/dL (6.4-8.2)
[2018-02-01 13:31] LABS: Alanine Aminotransferase 29 U/L (12-78); Albumin 3.4 g/dL (3.4-5.0); Anion Gap 8 meq/L (5-15); Aspartate Aminotransferase 17 U/L (15-37); Calcium 8.8 mg/dL (8.5-10.1); Carbon Dioxide 27.7 meq/L (21.0-32.0); Chloride 104 meq/L (98-107); Glomerular Filtration Rate 60 mL/min (>89); Glucose,Random 107 mg/dL (74-106); Sodium 140 meq/L (136-145)
[2018-02-01 13:37] LABS: Potassium 4.4 meq/L (3.5-5.1)
[2018-02-01] MEDS ORDERED: ALPRAZolam 0.25 MG Tablet PO PRN (15:10)
[2018-02-01] MEDS ORDERED: Menthol 5.8 MG Lozenge BUCCAL PRN (15:11)
[2018-02-01] MEDS ORDERED: Zolpidem Tartrate 5 MG Tablet PO PRN (15:11)
[2018-02-01] MEDS ORDERED: Acetaminophen 325 MG Tablet PO PRN (15:11)
[2018-02-01] MEDS ORDERED: Bisacodyl 10 MG Supp RECTAL PRN (15:11)
[2018-02-01] MEDS ORDERED: Aluminum/Magnesium/Simethacone Susp 30 ML UDC PO PRN (15:11)
[2018-02-01] MEDS ORDERED: Morphine Sulfate Inj 2 MG/ML Vial IV.PUSH PRN (15:11)
[2018-02-01] MEDS ORDERED: Vancomycin Inj 1,000 MG in Sodium Chlor 0.9% Inj 250 ML IV.SIG SCH (16:00)
[2018-02-01 16:53] LABS: Bilirubin,Urine Negative (Negative); Clarity,Urine Clear (Clear); Color,Urine Yellow (Yellw/Straw); Glucose,Urine (UA) Negative (Negative); Leukocyte Esterase,Urine Negative (Negative); Mucus,Urine Few /lpf (Occasional); Nitrite,Urine Negative (Negative); Specific Gravity,Urine 1.017 (1.002-1.035)
--- NOTE | 2018-02-01 17:40 | P.HPNS ---
History of Present Illness Service: Neurosurgery Primary Care Physician: Loly Gregorio MD History of Present Illness: 77-year-old gentleman with a history of normal-pressure hydrocephalus status post ventriculoperitoneal shunt placement for a month ago. He subsequently developed headaches and follow-up CT scan of the right subdural hygromatous collection. The MERCURY PURIFIER shunt pressure setting was increased to the highest level of 200 mm water from 100 mm of water and he noted improvement of his headaches although on follow-up CT scan of the head he has persistent 18 mm right frontoparietal area subdural hygromas collection with a small component of subacute to acute subdural hemorrhage noted per the radiologist. He was instructed to go to the emergency room by the radiologist. He relates some fluid and pressure buildup on the right frontal shunt site with intermittent headaches but no other new symptoms. - Diagnosis (1) Intracranial subdural hematoma (2) NPH (normal pressure hydrocephalus) Inpatient Certification: I certify that the inpatient services were ordered in accordance with Medicare regulations governing the order. This includes certification that hospital inpatient services are reasonable and necessary and in the case of services not specified as inpatient-only under 42 CFR 419.22(n), that they are appropriately provided as inpatient services in accordance to with the 2-midnight benchmark under 43 CFR 412.3(e) Estimated Total Length of Stay (Days): 3 Plans for Post Hospital Care: Not yet determined Review of Systems All other systems reviewed negative except as stated in HPI [facility] - History History Provided By: Patient - Medical History Medical History: Medical History (Last Updated 02/01/18 @ 12:22 by Kassidy Jaquez RN) Anxiety Arthritis Cataract Chronic back pain Dental root implant present Depression Deterioration of spinal disc of lower back Diminished hearing Eczema GERD (gastroesophageal reflux disease) Gastric ulcer Gout Lazy eye of left side Macular pucker, right eye Prostate disorder RLS (restless legs syndrome) Seizure Wears glasses Wears hearing aid in both ears Diverticulitis - Surgical History Surgical History: Surgical History (Last Updated 02/01/18 @ 12:23 by Kassidy Jaquez RN) History of bowel resection (Resolved) H/O transurethral resection of prostate History of partial colectomy History of thoracotomy Hx of cataract surgery Hx of cholecystectomy - Tobacco History Second Hand Smoke Exposure: No Smoking Status: Former smoker - Alcohol History How Often Do You Have a Drink Containing Alcohol: Never - Substance Use History Substance History: No History of Abuse - Travel History Recent Travel in the [place] Within the Last 8 Weeks: No Recent Travel Out of the Country Within the Last 8 Weeks: No - Immunization History Tetanus Immunization: <5 Years Hx Influenza Vaccine This Season: Yes Medications and Allergies Active Medications: Active Medications Acetaminophen (Tylenol) 650 mg PO Q4H PRN PRN Reason: TEMPERATURE > 101.5 F Hydrocodone Bitart/Acetaminophen ([place] 10/325) 1 tab PO Q4H PRN PRN Reason: Pain Scale 1 To 5 Al Hydrox/Mg Hydrox/Simethicone (Mag-Al Plus Susp Liq) 30 ml PO Q6H PRN PRN Reason: DYSPEPSIA Al Hydroxide/Mg Hydroxide (Milk Of Magnesia Liq) 30 ml PO Q12H PRN PRN Reason: Mild Constipation Albuterol (Albuterol Neb (Prn)) 2.5 mg NEB Q4HR NEB PRN PRN Reason: WHEEZING Alprazolam (Xanax) 0.25 mg PO DAILY PRN PRN Reason: Anxiety Bisacodyl (Dulcolax Supp) 10 mg RECTAL DAILY PRN PRN Reason: SEVERE CONSITIPATION Clonidine HCl (Catapres) 0.1 mg PO Q6H PRN PRN Reason: SYS BP GREATER THAN 170 MMHG Divalproex Sodium (Depakote Dr) 250 mg PO TID LONNY Docusate Sodium (Colace) 100 mg PO TID [facility] Vancomycin HCl 1,000 mg/ (Sodium Chloride) 250 mls @ 250 mls/hr IV.SIG MATERIAL SPREADER [facility] Stop: 02/05/18 15:59 Lactulose (Lactulose Liq) 30 ml PO DAILY PRN PRN Reason: SEVERE CONSITIPATION Menthol ([place]) 1 lozenge BUCCAL UNSCH PRN PRN Reason: SORE THROAT Morphine Sulfate (Morphine Inj) 2 mg IV.PUSH Q2H PRN PRN Reason: PAIN SCALE 6 TO 10 Pantoprazole Sodium (Protonix) 20 mg PO DAILY LONNY Ropinirole HCl (Requip) 0.25 mg PO HS [facility] Sennosides (Senokot) 17.2 mg PO Q12H PRN PRN Reason: Moderate Constipation Sodium Chloride (Ns Flush) 2 ml IV.FLUSH PRN PRN PRN Reason: FLUSH AFTER USING IV ACCESS Zolpidem Tartrate (Ambien) 5 mg PO HS PRN PRN Reason: INSOMNIA Allergies Allergy/AdvReac Type Severity Reaction Status Date / Time aspirin Allergy Intermediate Burning Verified 12/30/17 06:28 diatrizoate meglumine Allergy Intermediate HIVES Verified 12/30/17 06:28 gadobenic acid Allergy Intermediate HIVES Verified 12/30/17 06:28 gadodiamide Allergy Intermediate HIVES Verified 12/30/17 06:28 gadoteridol Allergy Intermediate HIVES Verified 12/30/17 06:28 iodixanol Allergy Intermediate HIVES Verified 12/30/17 06:28 iohexol Allergy Intermediate HIVES Verified 12/30/17 06:28 Home Medications Medication Instructions Recorded Confirmed Type alprazolam 0.25 mg PO DAILY PRN 11/23/17 02/01/18 History divalproex 250 mg PO TID 11/23/17 02/01/18 History omeprazole 20 mg PO DAILY 11/23/17 02/01/18 History ropinirole 0.25 mg PO HS 11/23/17 02/01/18 History docusate sodium [Colace] 100 mg PO TID 12/23/17 02/01/18 History Exam Vital signs: Vital Signs 02/01/18 12:00 02/01/18 12:24 02/01/18 14:18 Temperature 97.8 F Pulse Rate 78 83 71 Respiratory Rate 16 15 13 Blood Pressure 134/74 109/57 L 145/70 H Pulse Oximetry 97 96 Intake & Output 01/31/18 02/01/18 02/01/18 18:59 06:59 18:59 Weight 99.79 kg - Constitutional no acute distress - Routine HEENT Exam Head: Present: normocephalic, atraumatic (Right frontal ventriculoperitoneal shunt site incisions have healed well with the reservoir that refills) Eye: Present: EOMI, PERRL ENT: Present: mucous membranes moist, nares patent, external ear normal - Routine Neck Exam Present: supple, full ROM - Routine Respiratory Exam Present: CTA bilaterally - Routine Cardiovascular Exam Present: RRR, S1, S2 - Routine Abdominal Exam Present: soft, normoactive bowel sounds - Routine Extremities Exam Present: full ROM - Routine Skin Exam Present: intact - Routine Neurological Exam Present: alert, CN II-XII intact, abnormal gait, moving all extremities, normal speech Results - Laboratory Findings CBC and BMP: 02/01/18 12:35 02/01/18 12:35 Abnormal lab findings: Abnormal Labs 02/01/18 02/01/18 02/01/18 12:35 12:35 12:35 Plt Count 125 L [place] % (Auto) 12.3 H Estimated GFR 60 L Random Glucose 107 H Urine Mucus Valproic Acid 48 L 02/01/18 15:57 Plt Count [place] % (Auto) Estimated GFR Random Glucose Urine Mucus Few H Valproic Acid Caprini VTE Risk Assessment VTE Pharmacological Exception Reason: Hemorrhage Caprini Risk Assessment Model: Point Value = 1 Point Value = 2 Point Value = 3 Point Value = 5 Age 41-60 Minor surgery BMI > 25 kg/m2 Swollen legs Varicose veins or History of unexplained or recurrent spontaneous Oral contraceptives or hormone replacement Sepsis (< 1 month) Serious lung disease, including pneumonia (< 1 month) Abnormal pulmonary function Acute myocardial infarction Congestive heart failure (< 1 month) History of inflammatory bowel disease Medical patient at bed rest Age 61-74 Arthroscopic surgery Major open surgery (> 45 min) Laparoscopic surgery (> 45 min) Malignancy Confined to bed (> 72 hours) Immobilizing plaster cast Central venous access Age >= 75 History of VTE Family history of VTE Factor V Leiden Prothrombin [id number] Lupus anticoagulant Anticardiolipin antibodies Elevated serum homocysteine Heparin-induced thrombocytopenia Other congenital or acquired thrombophilia Stroke (< 1 month) Elective arthroplasty Hip, pelvis, or leg fracture Acute spinal cord injury (< 1 month) Prophylaxis Regimen: Total Risk Factor Score Risk Level Prophylaxis Regimen 0-1 Low Early ambulation 2 Moderate Order ONE of the following: *Sequential Compression Device (SCD) *Heparin 5000 units SQ BID 3-4 Higher Order ONE of the following medications: *Heparin 5000 units SQ TID *Enoxaparin/Lovenox 40 mg SQ daily (WT < 150 kg, CrCl > 30 mL/min) *Enoxaparin/Lovenox 30 mg SQ daily (WT < 150 kg, CrCl > 10-29 mL/min) *Enoxaparin/Lovenox 30 mg SQ BID (WT < 150 kg, CrCl > 30 mL/min) AND/OR *Sequential Compression Device (SCD) 5 or more Highest Order ONE of the following medications: *Heparin 5000 units SQ TID (Preferred with Epidurals) *Enoxaparin/Lovenox 40 mg SQ daily (WT < 150 kg, CrCl > 30 mL/min) *Enoxaparin/Lovenox 30 mg SQ daily (WT < 150 kg, CrCl > 10-29 mL/min) *Enoxaparin/Lovenox 30 mg SQ BID (WT < 150 kg, CrCl > 30 mL/min) AND *Sequential Compression Device (SCD) Assessment and Plan - Assessment (1) Intracranial subdural hematoma Code(s): S06.5X9A - Traumatic subdural hemorrhage with loss of consciousness of unspecified duration, initial encounter Status: Acute (2) NPH (normal pressure hydrocephalus) Code(s): G91.2 - (Idiopathic) normal pressure hydrocephalus Status: Chronic - Plan 77-year-old gentleman with the right frontoparietal subdural hygromas collection with the complaint of some subacute/acute blood and follow-up imaging studies. The subdural collection has not resolved despite increasing the MERCURY PURIFIER shunt pressure setting to the highest level. Discussed options with the patient and for including continued observation and conservative treatment versus a right odette hole drainage of the subdural collection. The risks and benefits involved were discussed and they requested we proceed with surgery and accordingly we will schedule this for tomorrow morning. Mechanical DVT prophylaxis with sequential compression devices since the chemical Proflex is contraindicated given the subdural hemorrhage.
[2018-02-01] MEDS: Divalproex 250 MG DR Tablet PO SCH (17:54)
[2018-02-01] MEDS: Docusate Sodium 100 MG Capsule PO SCH (17:54)
[2018-02-02] MEDS: Pantoprazole Sodium 20 MG DR Tablet PO SCH (08:00)
[2018-02-02] MEDS: Divalproex 250 MG DR Tablet PO SCH ×3 (08:00→19:18)
[2018-02-02] MEDS: Docusate Sodium 100 MG Capsule PO SCH ×3 (08:00→19:18)
[2018-02-02] MEDS ORDERED: Gelatin Size 100 Topical Foam ONE (11:03)
[2018-02-02] MEDS ORDERED: Bupivacaine/Epinephrine 0.5% Inj 50 ML Vial ONE (11:03)
[2018-02-02] MEDS ORDERED: Thrombin Topical Soln 5,000 UNIT Vial TOPICAL ONE (11:03)
[2018-02-02] MEDS ORDERED: Lidocaine PF 1% Inj 5 ML Syringe INFILTRATN ONE (11:28)
[2018-02-02] MEDS ORDERED: Sodium Chlor 0.9% Inj 250 ML IV.SIG ONE (11:28)
[2018-02-02] MEDS ORDERED: Labetalol HCl Inj 100 MG/20 ML Vial IV.CONT ONE (11:28)
--- NOTE | 2018-02-02 12:30 | P.EN ---
Pt seen this morning. Discussed procedure of right odette hole for hemorrhage evacuation. Discussed procedure, risks, benefits, recovery in detail with pt and his . Discussed risk include but not limited to bleeding, infection, muscle weakness, voice hoarseness, difficulty swallowing, heart attack, stroke, blood clots in arms, legs, lungs, seizures, among others. Pt and agree to proceed with surgery. Informed consent obtained.
--- NOTE | 2018-02-02 12:58 | P.OP ---
- Preoperative Diagnosis (1) Intracranial subdural hematoma (2) NPH (normal pressure hydrocephalus) Date of procedure: 02/02/18 Procedure: Right parietal odette hole placement for subdural hemorrhage evacuation Anesthesia: OH Surgeon: Jesus Lopez MD [employer] Set Up Operator Vertical: Teresa Estimated blood loss (mL): 30 Operation and Findings: Following administration of a general endotracheal anesthesia, patient received a gram of vancomycin intravenously. Gusman catheter was placed along with sequential compression devices and he was positioned supine on the horseshoe headrest with the head turned to 45 to left side. The right frontoparietal area was then shaved and prepped with the resolution and ChloraPrep and sterilely draped. A small right parietal incision was made avoiding the underlying trajectory of the frontal ventriculoperitoneal shunt after infiltrating the scalp with 0.5% Marcaine with epinephrine solution. Incision carried down through the galea and a self-retaining retractor used for exposure. With an automated customs examiner a bur hole was made and the underlying dura cauterized with bipolar cautery and opened in a cruciate format. Subdural hygromas collections along with subacute brownish liquefied blood was encountered and evacuated under moderate pressure. The subdural space was then thoroughly irrigated with a drain also until the fluid was more clear. A 4 mm TARYN drain was in place in the subdural space which is dissected through the odette hole and tunneled on the scalp and secured the exit site with a 3-0 nylon suture. The galea was then approximated using 3-0 Vicryl interrupted stitches and final skin closure was with jeanne. A sterile dressing was then applied. Patient was then extubated and taken recovery room. There were no intraoperative complications and all sponge and needle count was correct at the end of the procedure. Estimated blood loss 30 cc from the procedure.
[2018-02-02] MEDS ORDERED: Morphine Inj 4 MG/ML Vial ONE (13:26)
[2018-02-02] MEDS ORDERED: fentaNYL Citrate Inj 100 MCG/2 ML Ampul ONE ×2 (13:26)
[2018-02-02] MEDS ORDERED: HYDROmorphone PF Inj 2 MG/ML Vial ONE (13:26)
[2018-02-02] MEDS: Sodium Chlor 0.9% Inj 500 ML IV.CONT SCH ×4 (14:20→23:18)
--- NOTE | 2018-02-03 04:42 | CT ---
EXAM DATE: 02/03/2018 4:37 AM EDT AGE/SEX: 77 years / Male INDICATIONS: Cephalgia. Evaluate for subdural hematoma. CLINICAL DATA: This is the patient's initial encounter. Patient reports that signs and symptoms have been present for 1 day and indicates a pain score of 10/10. MEDICAL/SURGICAL HISTORY: Seizures. . Shunt. RADIATION DOSE: 56.35 CTDI (mGy) COMPARISON: [facility] [place]/O [place], 12/30/2017. . TECHNIQUE: CT of the head without contrast. Using automated exposure control and adjustment of the mA and/or kV according to patient size, radiation dose was kept as low as reasonably achievable to ob tain optimal diagnostic quality images. DICOM format image data is available electronically for revi ew and comparison. FINDINGS: Cerebrum: Right-sided ventriculostomy tube in the right lateral ventricle. Drain also present in the right subdural space. Trace pneumocephalus. Small residual right subdural fluid collection without s ignificant mass effect or shift. Ventricular size is stable. Posterior Fossa: The cerebellum and brainstem are intact. The 4th ventricle is midline. The cerebe llopontine angle is unremarkable. CONCLUSION: 1. Right frontal ventriculostomy with stable ventricular size compared with December 30. 2. Right subdural drain present with small residual subdural fluid collection measuring up to about 5 mm in diameter. No significant mass effect or midline shift. . Electronically signed by: Jake Epstein MD 02/03/2018 4:41 AM EDT
[2018-02-03] MEDS: Sodium Chlor 0.9% Inj 500 ML IV.CONT SCH ×3 (05:53→13:45)
[2018-02-03 07:08] LABS: Calcium 8.2 mg/dL (8.5-10.1); Carbon Dioxide 29.4 meq/L (21.0-32.0)
[2018-02-03 07:12] LABS: Hematocrit 44.3 % (39.0-51.0); Hemoglobin 14.9 gm/dL (13.0-17.0); Mean Corpuscular HGB Conc 33.7 % (32.0-36.0); Mean Corpuscular Hemoglobin 29.6 pg (27.0-34.0); Mean Corpuscular Volume 87.8 fL (80.0-100.0); Platelet Count 107 th/mm3 (150-450); Red Blood Count 5.04 mil/mm3 (4.50-5.90); Red Cell Distribution Width 14.1 % (11.6-17.2); White Blood Count 7.4 th/mm3 (4.0-11.0)
[2018-02-03] MEDS: Pantoprazole Sodium 20 MG DR Tablet PO SCH (08:02)
[2018-02-03] MEDS: Docusate Sodium 100 MG Capsule PO SCH ×3 (08:02→18:50)
[2018-02-03] MEDS: Divalproex 250 MG DR Tablet PO SCH ×3 (08:02→17:53)
--- NOTE | 2018-02-03 15:21 | P.PNNS ---
Subjective Interval history: Pt awake and alert. Complains of nausea and occipital and vertex headache. No vision changes. No paresthesias in face or extremities. No weakness in extremities. <Umberto Horn - Last Filed: 02/03/18 15:14> Physical Exam Vital signs: Vital Signs 02/02/18 15:30 02/02/18 16:00 02/02/18 17:34 Temperature 97.7 F 97.7 F Pulse Rate 70 87 Respiratory Rate 12 12 Blood Pressure 162/96 H 153/81 H Pulse Oximetry 96 98 98 02/02/18 19:35 02/02/18 20:00 02/03/18 00:00 Temperature 98.1 F 98 F Pulse Rate 90 92 H Respiratory Rate 9 L 10 L Blood Pressure 149/79 H 155/82 H Pulse Oximetry 100 98 98 02/03/18 01:16 02/03/18 02:00 02/03/18 04:00 Temperature 98.3 F Pulse Rate 94 H 98 H Respiratory Rate 13 16 Blood Pressure 130/78 Pulse Oximetry 97 02/03/18 06:00 02/03/18 08:00 02/03/18 09:06 Temperature 98.3 F Pulse Rate 83 82 Respiratory Rate 12 12 Blood Pressure 145/77 H Pulse Oximetry 95 02/03/18 09:40 02/03/18 10:00 02/03/18 12:00 Temperature 98.5 F Pulse Rate 80 78 Respiratory Rate 12 13 Blood Pressure 144/74 H Pulse Oximetry 95 02/03/18 13:20 Temperature Pulse Rate Respiratory Rate 12 Blood Pressure Pulse Oximetry Intake & Output 02/02/18 02/03/18 02/03/18 18:59 06:59 18:59 Intake Total 1989 850 / 850 100 / 100 Output Total 1200 / 1200 870 / 870 Balance 790 / 790 -20 / -20 100 / 100 Weight 108 kg Intake: IV 1100 / 1100 600 / 600 100 / 100 NS Inj 500 ML @ 75 mls/hr IV. 1000 / 1000 500 / 500 CONT .Q6H40M LONNY Rx#:[id number] Ancef Inj 1,000 MG In NS Inj 100 / 100 100 / 100 100 / 100 100 ML @ 200 mls/hr IV.SIG Q8H LONNY Rx#:[id number] Oral 240 / 240 250 / 250 Anesthesia Amount 650 / 650 Output: Estimated Blood Loss 30 / 30 Urine Amount (Catheter) 1100 / 1100 850 / 850 Indwelling Urethral Catheter 1100 / 1100 850 / 850 Wound Drainage 70 / 70 20 / 20 # 1 Right Head TARYN Drain 70 / 70 20 / 20 Other: Weight On Admission 106.3 kg - Constitutional no acute distress, average body habitus - Routine HEENT Exam Head: Absent: normocephalic (Pt s/p odette hole drainage of subdural hemorrhage.) Eye: Present: PERRL. Absent: conjunctival icterus ENT: Present: oropharynx clear - Routine Neck Exam Present: trachea midline - Routine Respiratory Exam Present: CTA bilaterally. Absent: patient mechanically ventilated, respiratory distress, rhonchi, wheezes - Routine Cardiovascular Exam Present: RRR, S1, S2. Absent: murmur - Routine Abdominal Exam Present: soft, normoactive bowel sounds. Absent: distended, firm - Routine Skin Exam Absent: cyanosis, erythema - Routine Neurological Exam Present: alert, oriented X3, moving all extremities, normal speech. Absent: motor deficit, altered mental status - Detailed Neurological Exam: Coma Scale Eye Opening: Spontaneous Verbal Response: Oriented Motor Response: Obey commands Bernarda Coma Scale Total: 15 - Routine Psychiatric Exam Present: normal affect, cooperative. Absent: anxious, agitated - Urinary Catheter Management Indwelling Urethral Catheter Cath placed during this visit: yes Reason for continuing: Hourly intake/output Insertion date: 02/02/18 Insertion time: 11:48 <Umberto Horn - Last Filed: 02/03/18 15:14> Vital signs: Vital Signs 02/02/18 19:35 02/02/18 20:00 02/03/18 00:00 Temperature 98.1 F 98 F Pulse Rate 90 92 H Respiratory Rate 9 L 10 L Blood Pressure 149/79 H 155/82 H Pulse Oximetry 100 98 98 02/03/18 01:16 02/03/18 02:00 02/03/18 04:00 Temperature 98.3 F Pulse Rate 94 H 98 H Respiratory Rate 13 16 Blood Pressure 130/78 Pulse Oximetry 97 02/03/18 06:00 02/03/18 08:00 02/03/18 09:06 Temperature 98.3 F Pulse Rate 83 82 Respiratory Rate 12 12 Blood Pressure 145/77 H Pulse Oximetry 95 02/03/18 09:40 02/03/18 10:00 02/03/18 12:00 Temperature 98.5 F Pulse Rate 80 78 Respiratory Rate 12 13 Blood Pressure 144/74 H Pulse Oximetry 95 02/03/18 13:20 02/03/18 14:00 02/03/18 16:00 Temperature 98.1 F Pulse Rate 92 H 76 Respiratory Rate 12 14 Blood Pressure 150/77 H Pulse Oximetry 95 Intake & Output 02/02/18 02/03/18 02/03/18 18:59 06:59 18:59 Intake Total 1989 850 / 850 1100 / 1100 Output Total 1200 / 1200 870 / 870 Balance 790 / 790 -20 / -20 1100 / 1100 Weight 108 kg Intake: IV 1100 / 1100 600 / 600 1100 / 1100 NS Inj 500 ML @ 75 mls/hr IV. 1000 / 1000 500 / 500 1000 / 1000 CONT .Q6H40M LONNY Rx#:[id number] Ancef Inj 1,000 MG In NS Inj 100 / 100 100 / 100 100 / 100 100 ML @ 200 mls/hr IV.SIG Q8H LONNY Rx#:[id number] Oral 240 / 240 250 / 250 Anesthesia Amount 650 / 650 Output: Estimated Blood Loss 30 / 30 Urine Amount (Catheter) 1100 / 1100 850 / 850 Indwelling Urethral Catheter 1100 / 1100 850 / 850 Wound Drainage 70 / 70 20 / 20 # 1 Right Head TARYN Drain 70 / 70 20 / 20 Other: Weight On Admission 106.3 kg - Urinary Catheter Management Indwelling Urethral Catheter Cath placed during this visit: no <Jesus Lopez - Last Filed: 02/03/18 17:49> Assessment and Plan - Assessment (1) Unsteady gait Code(s): R26.81 - Unsteadiness on feet Status: Acute (2) Memory difficulty Code(s): R41.3 - Other amnesia Status: Acute (3) Spinal headache Code(s): G97.1 - Other reaction to spinal and lumbar puncture Status: Acute Onset Date: ~11/25/17 (4) NPH (normal pressure hydrocephalus) Code(s): G91.2 - (Idiopathic) normal pressure hydrocephalus Status: Chronic (5) Intracranial subdural hematoma Code(s): S06.5X9A - Traumatic subdural hemorrhage with loss of consciousness of unspecified duration, initial encounter Status: Acute Qualifiers: Encounter type: initial encounter Loss of consciousness presence/duration: without LOC Qualified Code(s): S06.5X0A - Traumatic subdural hemorrhage without loss of consciousness, initial encounter (6) History of bowel resection Code(s): Z98.890 - Other specified postprocedural states; Z90.49 - Acquired absence of other specified parts of digestive tract Status: Resolved - Plan 77 y/o M with hx of RN CHRONIC shunt placement for NPH with right subdural hemorrhage. Pt underwent a right odette hole for drainage of SDH. Follow up CT head shows improved subdural collection. P: Continue to monitor Neuro exam. Continue with current care OOB to chair and ambulate Continue with TARYN drain. Continue with antiemetics. <Umberto Horn - Last Filed: 02/03/18 15:14> - Assessment (1) Intracranial subdural hematoma Code(s): S06.5X9A - Traumatic subdural hemorrhage with loss of consciousness of unspecified duration, initial encounter Status: Acute Qualifiers: Encounter type: initial encounter Loss of consciousness presence/duration: without LOC Qualified Code(s): S06.5X0A - Traumatic subdural hemorrhage without loss of consciousness, initial encounter (2) NPH (normal pressure hydrocephalus) Code(s): G91.2 - (Idiopathic) normal pressure hydrocephalus Status: Chronic - Attending Attestation The exam, history, and the medical decision-making described in the above note were completed with the assistance of the mid-level provider. I reviewed and agree with the findings presented. I attest that I had a [id number] encounter with the patient on the same day, and personally performed and documented my assessment and findings in the medical record. <Jesus Lopez - Last Filed: 02/03/18 17:49>
[2018-02-03] MEDS ORDERED: Sod Chloride 0.9% Inj 1,000 ML IV.SIG SCH (18:00)
[2018-02-04] MEDS: Pantoprazole Sodium 20 MG DR Tablet PO SCH (08:49)
[2018-02-04] MEDS: Docusate Sodium 100 MG Capsule PO SCH (08:49)
[2018-02-04] MEDS: Divalproex 250 MG DR Tablet PO SCH ×2 (08:50→13:25)
--- NOTE | 2018-02-04 10:24 | P.PNNS ---
Subjective Interval history: Pt awake and alert. Sitting up in chair. Complains of mild headache and nausea but improved. No paresthesias in face or extremities. No hemiparesis. <Umberto Horn - Last Filed: 02/04/18 10:19> Physical Exam Vital signs: Vital Signs 02/03/18 12:00 02/03/18 13:20 02/03/18 14:00 Temperature 98.5 F Pulse Rate 78 92 H Respiratory Rate 13 12 Blood Pressure 144/74 H Pulse Oximetry 95 02/03/18 16:00 02/03/18 18:00 02/03/18 20:00 Temperature 98.1 F 98.3 F Pulse Rate 76 77 84 Respiratory Rate 14 18 Blood Pressure 150/77 H 161/81 H Pulse Oximetry 95 95 02/03/18 22:00 02/04/18 00:00 02/04/18 00:45 Temperature 97.7 F Pulse Rate 72 68 Respiratory Rate 18 Blood Pressure 134/74 Pulse Oximetry 95 97 02/04/18 02:00 02/04/18 03:32 02/04/18 04:00 Temperature 97.9 F Pulse Rate 72 72 Respiratory Rate 19 Blood Pressure 167/80 H Pulse Oximetry 96 95 02/04/18 06:00 02/04/18 08:00 Temperature 97.5 F L Pulse Rate 74 87 Respiratory Rate 20 Blood Pressure 143/76 H Pulse Oximetry 98 Intake & Output 02/03/18 02/04/18 02/04/18 18:59 06:59 18:59 Intake Total 1550 / 1550 Output Total 510 / 510 0 / 0 Balance 1040 / 1040 0 / 0 Weight 103.1 kg Intake: IV 1100 / 1100 NS Inj 500 ML @ 75 mls/hr IV. 1000 / 1000 CONT .Q6H40M [facility] Rx#:[id number] Ancef Inj 1,000 MG In NS Inj 100 / 100 100 ML @ 200 mls/hr IV.SIG Q8H [facility] Rx#:[id number] Oral 450 / 450 Output: Urine Amount (Catheter) 500 / 500 Indwelling Urethral Catheter 500 / 500 Wound Drainage 10 / 10 0 / 0 # 1 Right Head TARYN Drain 10 / 10 0 / 0 Other: # Voids 1 3 # Bowel Movements 0 0 - Constitutional no acute distress, average body habitus, cooperative - Routine HEENT Exam Head: Absent: normocephalic (Right odette hole incision clean and dry. TARYN drain in place with minimal drainage.) Eye: Present: PERRL (Pupils 3mm bilaterally reactive bilaterally.). Absent: conjunctival icterus ENT: Present: oropharynx clear - Routine Neck Exam Present: trachea midline - Routine Respiratory Exam Present: CTA bilaterally. Absent: respiratory distress, rhonchi, wheezes - Routine Cardiovascular Exam Present: RRR, S1, S2. Absent: murmur - Routine Abdominal Exam Present: soft, normoactive bowel sounds. Absent: distended, firm - Routine Skin Exam Absent: cyanosis, erythema - Routine Neurological Exam Present: alert, oriented X3, moving all extremities. Absent: altered mental status, facial asymmetry - Detailed Neurological Exam: Coma Scale Eye Opening: Spontaneous Verbal Response: Oriented Motor Response: Obey commands [place] Coma Scale Total: 15 - Routine Psychiatric Exam Present: normal affect. Absent: anxious, agitated - Urinary Catheter Management Indwelling Urethral Catheter Cath placed during this visit: yes, but has since been removed by the nurse Reason for continuing: Hourly intake/output Insertion date: 02/02/18 Insertion time: 11:48 Removal date: 02/03/18 Removal time: 13:30 <Umberto Horn - Last Filed: 02/04/18 10:19> Vital signs: Vital Signs 02/03/18 16:00 02/03/18 18:00 02/03/18 20:00 Temperature 98.1 F 98.3 F Pulse Rate 76 77 84 Respiratory Rate 14 18 Blood Pressure 150/77 H 161/81 H Pulse Oximetry 95 95 02/03/18 22:00 02/04/18 00:00 02/04/18 00:45 Temperature 97.7 F Pulse Rate 72 68 Respiratory Rate 18 Blood Pressure 134/74 Pulse Oximetry 95 97 02/04/18 02:00 02/04/18 03:32 02/04/18 04:00 Temperature 97.9 F Pulse Rate 72 72 Respiratory Rate 19 Blood Pressure 167/80 H Pulse Oximetry 96 95 02/04/18 06:00 02/04/18 08:00 02/04/18 10:00 Temperature 97.5 F L Pulse Rate 74 87 81 Respiratory Rate 20 Blood Pressure 143/76 H Pulse Oximetry 98 02/04/18 11:51 02/04/18 12:00 Temperature 98.7 F Pulse Rate 84 Respiratory Rate 13 Blood Pressure 159/98 H Pulse Oximetry 95 96 Intake & Output 02/03/18 02/04/18 02/04/18 18:59 06:59 18:59 Intake Total 1550 / 1550 Output Total 510 / 510 0 / 0 Balance 1040 / 1040 0 / 0 Weight 103.1 kg Intake: IV 1100 / 1100 NS Inj 500 ML @ 75 mls/hr IV. 1000 / 1000 CONT .Q6H40M [facility] Rx#:[id number] Ancef Inj 1,000 MG In NS Inj 100 / 100 100 ML @ 200 mls/hr IV.SIG Q8H [facility] Rx#:[id number] Oral 450 / 450 Output: Urine Amount (Catheter) 500 / 500 Indwelling Urethral Catheter 500 / 500 Wound Drainage 10 / 10 0 / 0 # 1 Right Head TARYN Drain 10 / 10 0 / 0 Other: # Voids 1 3 # Bowel Movements 0 0 - Urinary Catheter Management Indwelling Urethral Catheter Cath placed during this visit: no <Jesus Lopez - Last Filed: 02/04/18 14:54> Assessment and Plan - Assessment (1) Unsteady gait Code(s): R26.81 - Unsteadiness on feet Status: Acute (2) Memory difficulty Code(s): R41.3 - Other amnesia Status: Acute (3) Spinal headache Code(s): G97.1 - Other reaction to spinal and lumbar puncture Status: Acute Onset Date: ~11/25/17 (4) NPH (normal pressure hydrocephalus) Code(s): G91.2 - (Idiopathic) normal pressure hydrocephalus Status: Chronic (5) Intracranial subdural hematoma Code(s): S06.5X9A - Traumatic subdural hemorrhage with loss of consciousness of unspecified duration, initial encounter Status: Acute Qualifiers: Encounter type: initial encounter Loss of consciousness presence/duration: without LOC Qualified Code(s): S06.5X0A - Traumatic subdural hemorrhage without loss of consciousness, initial encounter (6) History of bowel resection Code(s): Z98.890 - Other specified postprocedural states; Z90.49 - Acquired absence of other specified parts of digestive tract Status: Resolved - Plan 77 y/o M with 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 Pt underwent a right odette hole for drainage of SDH. Follow up CT head shows improved subdural collection. P: TARYN drain removed and steristrip placed. No further drainage. Continue to ambulate. If pt doing well later today with discharge home. <Umberto Horn - Last Filed: 02/04/18 10:19> - Assessment (1) Intracranial subdural hematoma Code(s): S06.5X9A - Traumatic subdural hemorrhage with loss of consciousness of unspecified duration, initial encounter Status: Acute Qualifiers: Encounter type: initial encounter Loss of consciousness presence/duration: without LOC Qualified Code(s): S06.5X0A - Traumatic subdural hemorrhage without loss of consciousness, initial encounter (2) NPH (normal pressure hydrocephalus) Code(s): G91.2 - (Idiopathic) normal pressure hydrocephalus Status: Chronic - Attending Attestation The exam, history, and the medical decision-making described in the above note were completed with the assistance of the mid-level provider. I reviewed and agree with the findings presented. I attest that I had a [id number] encounter with the patient on the same day, and personally performed and documented my assessment and findings in the medical record. <Jesus Lopez - Last Filed: 02/04/18 14:54>
--- NOTE | 2018-02-04 15:11 | P.DCO ---
- Diagnosis (5) Intracranial subdural hematoma - Physical Therapy Order: Evaluate and treat, Improve ambulation, Strength and gait training - Home Health Nursing Order: Signs/symptoms of disease process, Wound care and dressing changes, Nursing assessment with vital signs Instructions: Remove scalp jeanne on 02/10/18. - Certification I have seen patient Yann Martinez on 02/04/18. My clinical findings support the need for the requested home health care services because: Deconditioned with increased weakness, Impaired cognition/judgement, High risk of falls I certify that my clinical findings support that this patient is homebound because: Post-op weakness, Impaired cognitive ability/safety, Unsteady gait/balance, Unable to use public transportation (5) Intracranial subdural hematoma Qualifiers: Encounter type: initial encounter Loss of consciousness presence/duration: without LOC Qualified Code(s): S06.5X0A - Traumatic subdural hemorrhage without loss of consciousness, initial encounter
[2018-02-04 17:16] VITALS: PULSE 85
[2018-02-04 17:17] VITALS: BP 148/87; RESP 12; TEMP 98.5; O2SAT 98
--- NOTE | 2018-02-21 16:34 | P.DS ---
Date of admission: 02/01/18 12:52 Primary care physician: Loly Gregorio MD Attending physician on discharge: Jesus Lopez Brief History from admission: 77-year-old gentleman with a history of normal-pressure hydrocephalus status post ventriculoperitoneal shunt placement for a month ago. He subsequently developed headaches and follow-up CT scan of the right subdural hygromatous collection. The FRONT DESK LEAD shunt pressure setting was increased to the highest level of 200 mm water from 100 mm of water and he noted improvement of his headaches although on follow-up CT scan of the head he has persistent 18 mm right frontoparietal area subdural hygromas collection with a small component of subacute to acute subdural hemorrhage noted per the radiologist. He was instructed to go to the emergency room by the radiologist. He relates some fluid and pressure buildup on the right frontal shunt site with intermittent headaches but no other new symptoms. DS: Diagnosis - Discharge Diagnosis (1) Unsteady gait Status: Acute (2) Memory difficulty Status: Acute (3) Spinal headache Status: Acute (4) NPH (normal pressure hydrocephalus) Status: Chronic (5) Intracranial subdural hematoma Status: Acute DS: Summary Hospital Course: Pt underwent a right parietal odette hole placement for subdural hemorrhage evacuation by Jesus Lopez MD on 02/02/18. Postoperatively he was admitted to the surgical ICU. A post op CT of the head was obtained which was improved with reduction of the subdural hemorrhage. PT was consulted and his activity status increased. His post op nausea was treated with antiemetics. His TARYN drain was removed. The pt was discharged home in stable condition. - Time Spent with Patient Total time spent providing and/or coordinating discharge services: Less than 30 minutes - Quality: VTE Deep Vein Thrombosis/Pulmonary Embolism Present on Admission: No Results Procedures completed during hospitalization: Right parietal odette hole placement for subdural hemorrhage evacuation on by Jesus Lopez MD. - Impressions ITS Impressions Head CT 02/03/18 00:00 CONCLUSION: 1. Right frontal ventriculostomy with stable ventricular size compared with December 30. 2. Right subdural drain present with small residual subdural fluid collection measuring up to about 5 mm in diameter. No significant mass effect or midline shift. . Discharge Plan - Discharge Disposition Patient Disposition: /Home Health Service - Discharge Condition Condition: Good - Discharge Order Discharge Orders: Discharge Order (Routine); Ordered 02/04/18 Ordered By: Jesus Lopez - Physicians Team Primary Care Provider: Loly Gregorio Attending Provider: Jesus Lopez
== END 2018-02-04 17:15 | disposition home health service (06) ==
LOC: NEPC 11:41 → NEDA 12:52 → N05 16:39 → N03 02-02 13:28
PROVIDERS: ADMIT Neurological Surgery; ATTEND Neurological Surgery